=== PATIENT | male | born 1930 | race Caucasian/White ===

== ENCOUNTER 2016-09-05 16:09 | Outpatient (CLI) ==
[2016-01-20 16:13] VITALS: BMI 16.8
== END 2016-09-05 16:10 | disposition home or self-care (01) ==
LOC: LAB 16:09
PROVIDERS: ATTEND General Practice
DX: B35.1 Tinea unguium (principal)
CPT/HCPCS: 87070

== ENCOUNTER 2016-09-21 08:23 | Day surgery (SDC) ==
[2016-01-20 16:13] VITALS: BMI 16.8
[2016-09-21 09:05] VITALS: BP 134/78; TEMP 98.6
[2016-09-21] MEDS ORDERED: LIDOCAINE 1% 20 ML MDV ID ONE (10:18)
--- NOTE | 2016-10-06 10:11 | OP ---
DATE OF PROCEDURE: 09/21/16 SURGEON: NAVID SCHWARTZ M.D. 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 The patient is brought to surgeon because of the size again and the possibility of difficulty of approximation. The area was prepped and draped and anesthetized with 1% Xylocaine. The incision was made around the involved areas and carried into the subcutaneous tissue. This was then dissected sharply under low magnification. It was completely removed. Closure, however, was difficult and approximation and so the upper side of the incision was approximated to make the approximation with both edges possible and this was accomplished. 5-0 Vicryl was utilized and the skin was approximated with Steri- strips. Minimal blood loss. The patient tolerated the procedure well and will be seen at the office in one week and before if there is any problem. NINO
== END 2016-09-21 11:22 | disposition home or self-care (01) ==
LOC: SURG 08:23
PROVIDERS: ATTEND General Practice
DX: C44.319 Basal cell carcinoma of skin of other parts of face (principal)
CPT/HCPCS: 11644; 12052

== ENCOUNTER 2017-01-18 12:47 | Emergency (ER) ==
[2017-01-18 13:00] VITALS: BP 118/75; TEMP 96.9; BMI 18.0
--- NOTE | 2017-01-18 13:07 | ED.PDOC ---
General ED Provider: Dr. JOEY GOMEZ Chief Complaint: Fall Stated Complaint: Reportedly fell in workshop yesterday while going to use bathroom Time Seen by Physician: 13:05 Mode of Arrival: Walk-In Information Source: Patient Primary Care Provider: BOZENA AZEVEDO Nursing and Triage Documentation Reviewed and Agree: Yes Review of Systems - Review Of Systems Constitutional: Reports: No symptoms Respiratory: Reports: No symptoms Cardiac: Reports: No symptoms Musculoskeletal: Reports: Other (numerous skin tears) All Other Systems: Reviewed and Negative Past Medical History - Past Medical History Previously Healthy: Yes Endocrine: Reports: Dyslipidemia Cardiovascular: Reports: Hypertension, CHF, Other (tachycardia) Respiratory: Reports: COPD Hematological: Reports: None Gastrointestinal: Reports: Other (Esophageal stricture) Genitourinary: Reports: None Neuro/Psych: Reports: None Musculoskeletal: Reports: None Cancer: Reports: Skin - Surgical History General Surgical History: Reports: Pacemaker, Other (Esophageal stricture) - Family History Family History: Reports: Unknown - Social History Smoking Status: Current every day smoker, Heavy tobacco smoker Hx Substance Use: No Alcohol Screening: None - Immunizations Tetanus Shot up to Date: No (more than 10 years) Physical Exam - Physical Exam Appearance: Well-appearing Eyes: ODETTE, EOMI ENT: Nose normal, Oropharynx normal Respiratory: Airway patent, Breath sounds clear, Respirations nonlabored Cardiovascular: RRR, Pulses normal GI/: Soft, Nontender, Bowel sounds normal Musculoskeletal: Normal strength, ROM intact, Limited ROM Skin: Warm, Dry, Normal color (except for skin tears R and L upper extremities) Critical Care Note - Critical Care Note Total Time (mins): 10 Course - Course Orders, Labs, Meds: Orders Category Date Time Status Wound [ED WOUND CARE] .ONCE EMERGENCY 01/18/17 13:21 Active Bacitracin/Polymyxin B Sulfate [Polysporin 0.9 gm MEDS 01/18/17 13:22 Discontinued Packet] 1 each TP ONCE STA Medications Discontinued Medications Generic Name Dose Route Start Last Admin Trade Name Freq PRN Reason Stop Dose Admin Bacitracin/Polymyxin B Sulfate 1 each 01/18/17 13:22 01/18/17 13:55 Polysporin 0.9 Gm Packet TP 01/18/17 13:23 1 each ONCE STA Administration Vital Signs: Temp Pulse Resp BP Pulse Ox 01/18/17 12:47 96.9 F L 67 20 118/75 95 Departure - Departure Time of Disposition: 14:24 Disposition: HOME SELF-CARE Discharge Problem: Skin tear of right upper arm without complication Instructions: Abrasion (ED) Condition: Good Pt referred to PMD for follow-up: Yes (Call for followup appointment) Additional Instructions: Follow up with primary care; watch for signs of infection. Allergies/Adverse Reactions: Allergies No Known Allergies Allergy (Verified 01/18/17 13:01) Home Medications: Ambulatory Orders Digoxin [Lanoxin] 125 mcg PO DAILY 08/22/13 Hydrocodone/Acetaminophen [Hydrocodon-Acetaminoph 7.5-325] 1 tab PO BID Alprazolam [Xanax] 0.25 mg PO BID PRN 01/20/16 Ferrous Sulfate [Iron] 325 mg PO DAILY 01/20/16 Aspirin 325 mg PO DAILY 08/16/16 Donepezil HCl [Aricept] 5 mg PO DAILY 09/21/16 Meclizine HCl [Antivert] 25 mg PO QID PRN 09/21/16 Disposition Discussed With: Patient
[2017-01-18] MEDS ORDERED: POLYSPORIN 0.9 GM PACKET TP STA (13:22)
== END 2017-01-18 14:36 | disposition home or self-care (01) ==
LOC: ED 12:47
DX: S41.112A Laceration without foreign body of left upper arm, initial encounter (principal); S41.111A Laceration without foreign body of right upper arm, initial encounter; W19.XXXA Unspecified fall, initial encounter; F17.210 Nicotine dependence, cigarettes, uncomplicated
CPT/HCPCS: 99283

== ENCOUNTER 2017-07-20 13:16 | Inpatient (IN) | payer OTHER ==
--- NOTE | 2017-07-20 13:42 | ED.PDOC ---
General ED Provider: Dr. JOEY GOMEZ Chief Complaint: Cough Stated Complaint: Cough, weakness Time Seen by Physician: 13:40 Mode of Arrival: Walk-In Information Source: Patient Primary Care Provider: BOZENA AZEVEDO Nursing and Triage Documentation Reviewed and Agree: Yes Reviewed sepsis parameters & appropriate labs ordered?: Yes System Inflammatory Response Syndrome: Not Applicable Sepsis Protocol: For patient's 13 years and over: Temp is 96.8 and below OR 101 and greater Pulse >90 BPM Resp >20/minute Acutely Altered Mental Status Are patient's symptoms suggestive of a new infection, such as: -Pneumonia -Skin, Soft Tissue -Endocarditis -UTI -Bone, Joint Infection -Implantable Device -Acute Abdominal Infection -Wound Infection -Meningitis -Blood Stream Catheter Infection -Unknown Review of Systems - Review Of Systems Constitutional: Reports: Malaise, Weakness Respiratory: Reports: Cough Neurological: Reports: Headache, Weakness All Other Systems: Reviewed and Negative Past Medical History - Past Medical History Previously Healthy: Yes Endocrine: Reports: Dyslipidemia Cardiovascular: Reports: Hypertension, CHF, Other (tachycardia) Respiratory: Reports: COPD Hematological: Reports: None Gastrointestinal: Reports: Other (Esophageal stricture) Genitourinary: Reports: None Neuro/Psych: Reports: None Musculoskeletal: Reports: None Cancer: Reports: Skin - Surgical History General Surgical History: Reports: Pacemaker, Other (Esophageal stricture) - Family History Family History: Reports: Unknown - Social History Smoking Status: Current every day smoker, Heavy tobacco smoker Hx Substance Use: No Alcohol Screening: None Physical Exam - Physical Exam Appearance: Ill-appearing Ill-appearing: Mild Eyes: ODETTE, EOMI ENT: Oropharynx normal Neck: Supple Respiratory: Airway patent, Breath sounds clear, Breath sounds diminished Cardiovascular: RRR, Pulses normal GI/: Soft, Nontender Musculoskeletal: Normal strength, ROM intact Skin: Warm, Dry, Pale Neurological: Sensation intact, Motor intact, Alert, Oriented Psychiatric: Affect appropriate, Mood appropriate Interpretation - Radiology Interpretation Radiology Interpretation By: Radiologist Radiology Results: No acute changes Exam Interpreted: Portable CXR - EKG Interpretation Time of EKG #1: 14:42 Rate: Normal Rhythm: Sinus Ectopy: None ST Segment: Normal Interpretation: No acute changes Re-Evaluation - Re-Evaluation Time of Re-Evaluation: 15:35 Status: Unchanged Appearance: NAD Lungs: Clear Skin: Warm and Dry Neuro: Alert and Oriented X3 Physician Notification - Case Discussed Physician Notified: Dr. Azevedo Time of Notification: 16:25 (Discussion re admission) Critical Care Note - Critical Care Note Total Time (mins): 35 Course - Course Hematology/Chemistry: 07/20/17 14:25 07/20/17 14:25 Orders, Labs, Meds: Lab Review 07/20/17 07/20/17 07/20/17 14:14 14:25 14:25 WBC 8.22 RBC 3.89 L Hgb 13.2 L Hct 38.6 L MCV 99.2 H MCH 33.9 H MCHC 34.2 RDW Coeff of Lauri 12.7 Plt Count 201 Immature Gran % (Auto) 0.6 Neut % (Auto) 78.6 Lymph % (Auto) 8.3 L [place] % (Auto) 12.0 H Eos % (Auto) 0.1 Baso % (Auto) 0.4 Immature Gran # (Auto) 0.1 Neut # 6.5 Lymph # 0.7 [place] # 1.0 Eos # 0.0 Baso # 0.0 Puncture Site Rr O2 Saturation 93.0 L ABG pH 7.415 ABG pCO2 30.6 L ABG pO2 64.0 L ABG HCO3 19.6 L ABG Total CO2 21 L ABG Base Excess -5 L Esvin Test + Oxygen Liter Flow 21.00 Sodium 137 Potassium 5.0 Chloride 104 Carbon Dioxide 26 Anion Gap 12.0 BUN 21 H Creatinine 1.40 H Estimated GFR (MDRD) 48.00 BUN/Creatinine Ratio 15.00 Glucose 109 Calcium 8.8 Total Bilirubin 0.5 AST 26 ALT 16 Alkaline Phosphatase 81 Troponin I 0.0640 Total Protein 6.8 Albumin 2.9 L Globulin 3.9 Albumin/Globulin Ratio 0.74 Influenza A (Rapid) Influenza B (Rapid) 07/20/17 14:45 WBC RBC Hgb Hct MCV MCH MCHC RDW Coeff of Lauri Plt Count Immature Gran % (Auto) Neut % (Auto) Lymph % (Auto) [place] % (Auto) Eos % (Auto) Baso % (Auto) Immature Gran # (Auto) Neut # Lymph # [place] # Eos # Baso # Puncture Site O2 Saturation ABG pH ABG pCO2 ABG pO2 ABG HCO3 ABG Total CO2 ABG Base Excess Esvin Test Oxygen Liter Flow Sodium Potassium Chloride Carbon Dioxide Anion Gap BUN Creatinine Estimated GFR (MDRD) BUN/Creatinine Ratio Glucose Calcium Total Bilirubin AST ALT Alkaline Phosphatase Troponin I Total Protein Albumin Globulin Albumin/Globulin Ratio Influenza A (Rapid) Positive by naat H Influenza B (Rapid) Negative by naat Orders Category Date Time Status ADMIT PATIENT INPATIENT .TO [facility] (MONITORED BED) ADMISSION 07/20/17 16: 21 Active ABG DRAW REQUEST Stat CARDIO 07/20/17 14:17 Completed EKG-(ED ONLY) Stat CARDIO 07/20/17 14:15 Completed NEBULIZER TREATMENT Routine CARDIO 07/20/17 16:33 Ordered OXYGEN Routine CARDIO 07/20/17 16:26 Ordered ACTIVITY .Complete BR CARE 07/20/17 16:21 Active INTAKE & OUTPUT Q8HR CARE 07/20/17 16:21 Active TELEMETRY MONITORING TELE CARE 07/20/17 16:29 Active VITAL SIGNS Q8HR CARE 07/20/17 16:21 Active REGULAR DIET DIETARY 07/20/17 Breakfast Ordered ABG Stat LAB 07/20/17 14:14 Completed CBC W/ AUTO DIFF DAILY@0600 LAB 07/21/17 06:00 Ordered CBC W/ AUTO DIFF DAILY@0600 LAB 07/22/17 06:00 Ordered CBC W/ AUTO DIFF Stat LAB 07/20/17 14:25 Completed COMPREHENSIVE METABOLIC PANEL DAILY@0600 LAB 07/21/17 06:00 Ordered COMPREHENSIVE METABOLIC PANEL DAILY@0600 LAB 07/22/17 06:00 Ordered COMPREHENSIVE METABOLIC PANEL Stat LAB 07/20/17 14:25 Completed FLU A/B MOLECULAR Stat LAB 07/20/17 14:45 Completed MOLECULAR GROUP A STREP Stat LAB 07/20/17 14:45 Completed TROPONIN I Stat LAB 07/20/17 14:25 Completed URINALYSIS C & S IF INDICATED Stat LAB 07/20/17 14:14 Uncollected Acetaminophen [Tylenol] MEDS 07/20/17 15:36 Discontinued 500 mg PO ONCE STA Albuterol Sulfate 0.083% Neb [Albuterol 0.083% Neb] MEDS 07/20/17 20:00 Ordered 1 vial NEB RTQID Alprazolam [Xanax] MEDS 07/20/17 16:33 Ordered 0.25 mg PO BID PRN Aspirin [Aspirin EC] MEDS 07/20/17 17:00 Ordered 81 mg PO DAILY Azithromycin [Zithromax] MEDS 07/20/17 17:00 Active 500 mg PO DAILY Ceftriaxone Sodium [Rocephin] 1 gm MEDS 07/20/17 16:30 Ordered 0.9 % Sodium Chloride [Sodium Chloride] 50 ml IV DAILY Digoxin [Lanoxin] MEDS 07/21/17 09:00 Ordered 125 mcg PO DAILY Donepezil HCl [Aricept] MEDS 07/21/17 09:00 Ordered 5 mg PO DAILY Enoxaparin Sodium [Lovenox] MEDS 07/21/17 09:00 Ordered 30 mg SUBCUT DAILY Ferrous Sulfate [Iron] MEDS 07/21/17 09:00 Ordered 325 mg PO DAILY Hydrocodone Bit/Acetaminophen [Arthur 7.5-325] MEDS 07/20/17 21:00 Ordered 1 tab PO BID Methylprednisolone Sod Succ/Pf [Solu-Medrol 40 mg] MEDS 07/20/17 16:31 Discontinued 40 mg IVP ONCE STA [place]-3S/Dha/Epa/Fish Oil/D3 [Fish Oil-Vit D3 Softgel] MEDS 07/20/17 16:45 Ordered 1 each PO bid Triamcinolone Acetonide [Nasacort] MEDS 07/20/17 16:45 Ordered 16.9 ml NS 1-2XD RESUSCITATION STATUS Routine OTHERS 07/20/17 16:21 Ordered CHEST, 1V AP ONLY Stat RADS 07/20/17 13:41 Completed Medications Generic Name Dose Route Start Last Admin Trade Name Freq PRN Reason Stop Dose Admin Acetaminophen/Hydrocodone Bitart 1 tab 07/20/17 21:00 [place] 7.5-325 PO BID VERONICA Albuterol Sulfate 1 vial 07/20/17 20:00 Albuterol 0.083% Neb NEB RTQID VERONICA Alprazolam 0.25 mg 07/20/17 16:33 Xanax PO BID PRN Anxiety Aspirin 81 mg 07/20/17 17:00 Aspirin Ec PO DAILY [facility] Azithromycin 500 mg 07/20/17 17:00 Zithromax PO 07/22/17 23:59 DAILY [facility] Digoxin 125 mcg 07/21/17 09:00 Lanoxin PO DAILY [facility] Enoxaparin Sodium 30 mg 07/21/17 09:00 Lovenox SUBCUT DAILY [facility] Ceftriaxone Sodium 1 gm/ 50 mls @ 75 mls/hr 07/20/17 16:30 Sodium Chloride IV DAILY [facility] Non-Formulary Medication 5 mg 07/21/17 09:00 Donepezil Hcl [Aricept] PO DAILY VERONICA Non-Formulary Medication 325 mg 07/21/17 09:00 Ferrous Sulfate [Iron] PO DAILY VERONICA Non-Formulary Medication 1 each 07/20/17 16:45 [place]-3s/Dha/Epa/Fish Oil/D3 [Fish Oil-Vit D3 Softgel] PO bid VERONICA Non-Formulary Medication 16.9 ml 07/20/17 16:45 Triamcinolone Acetonide [Nasacort] NS 1-2XD VERONICA Discontinued Medications Generic Name Dose Route Start Last Admin Trade Name Freq PRN Reason Stop Dose Admin Acetaminophen 500 mg 07/20/17 15:36 07/20/17 15:42 Tylenol PO 07/20/17 15:37 500 mg ONCE STA Administration Methylprednisolone Sodium Succinate 40 mg 07/20/17 16:31 Solu-Medrol 40 Mg IVP 07/20/17 16:32 ONCE STA Vital Signs: Temp Pulse Resp BP Pulse Ox 07/20/17 13:23 98.7 F 102 H 20 146/89 H 90 L Departure - Departure Time of Disposition: 16:40 Disposition: ADMITTED INPATIENT Discharge Problem: Influenza A Instructions: Influenza (ED) Condition: Stable Pt referred to PMD for follow-up: Yes (Follow up with primary care on discharge) IPMP verified?: No Allergies/Adverse Reactions: Allergies No Known Allergies Allergy (Verified 07/20/17 13:30) Home Medications: Ambulatory Orders Digoxin [Lanoxin] 125 mcg PO DAILY 08/22/13 Hydrocodone/Acetaminophen [Hydrocodon-Acetaminoph 7.5-325] 1 tab PO BID Alprazolam [Xanax] 0.25 mg PO BID PRN 01/20/16 Ferrous Sulfate [Iron] 325 mg PO DAILY 01/20/16 Donepezil HCl [Aricept] 5 mg PO DAILY 09/21/16 Meclizine HCl [Antivert] 25 mg PO QID PRN 09/21/16 Aspirin [Aspirin Ec] 81 mg PO DAILY #30 tab-cap 02/14/17 [place]-3S/Dha/Epa/Fish Oil/D3 [Fish Oil-Vit D3 Softgel] 1 each PO bid #90 tab- cap 02/14/17
--- NOTE | 2017-07-20 14:00 | DI ---
EXAM: CHEST FRONTAL VIEW HISTORY: Cough. COMPARISON: 01/20/2016 FINDINGS: A heart size is within normal limits and stable. Left-sided pacemaker unit is stable. St ernotomy wires are noted. Moderate atherosclerotic disease. There is diffuse, chronic appearing inte rstitial accentuation. Lungs are hyperinflated and there is relative lucency of the lung zones which can be consistent with pulmonary emphysema. No acute infiltrates are seen. No vascular congestion. There is no consolidation, visible pleural fluid or pneumothorax. Bones reveal no acute fracture. IMPRESSION: No acute cardiopulmonary process.
[2017-07-20] MEDS ORDERED: TYLENOL PO STA (15:36)
[2017-07-20] MEDS ORDERED: SOLU-MEDROL 40 MG IVP STA (16:31)
[2017-07-20] MEDS ORDERED: FISH OIL PO SCH (16:45)
[2017-07-20] MEDS ORDERED: TRIAMCINOLONE ACETONIDE NS SCH (16:45)
[2017-07-20] MEDS ORDERED: [UNRECOGNIZED DRUG - OTHER] PO SCH (16:45)
[2017-07-20] MEDS ORDERED: D3 PO SCH (16:45)
[2017-07-20] MEDS ORDERED: OMEGA PO SCH (16:45)
[2017-07-20] MEDS ORDERED: DHA PO SCH (16:45)
[2017-07-20] MEDS ORDERED: EPA PO SCH (16:45)
[2017-07-20] MEDS ORDERED: ZITHROMAX 500 MG in SODIUM CHLORIDE 250 ML IV SCH (17:00)
[2017-07-20] MEDS: ROCEPHIN 1 GM in SODIUM CHLORIDE 50 ML IV SCH (17:33)
[2017-07-20] MEDS: ZITHROMAX PO SCH (17:33)
[2017-07-20] MEDS: ASPIRIN EC PO SCH (17:33)
[2017-07-20 17:53] VITALS: BMI 18.5
[2017-07-20] MEDS: XOPENEX 1.25 MG NEB SCH ×2 (18:11→22:50)
[2017-07-20] MEDS ORDERED: SODIUM CHLORIDE 1,000 ML IV SCH (18:30)
[2017-07-20] MEDS ORDERED: ALBUTEROL 0.083% NEB NEB SCH (20:00)
[2017-07-20] MEDS ORDERED: TAMIFLU ONE (20:26)
[2017-07-20] MEDS: FLONASE NAS SCH (20:34)
[2017-07-20] MEDS: NORCO 7.5-325 PO SCH (20:34)
[2017-07-20] MEDS: SOLU-MEDROL 40 MG IVP SCH (20:34)
[2017-07-20] MEDS: OMEGA-3 FISH OIL PO SCH (20:34)
[2017-07-20] MEDS: XANAX PO PRN (20:34)
[2017-07-20] MEDS ORDERED: TAMIFLU PO SCH (21:00)
[2017-07-21] MEDS: SOLU-MEDROL 40 MG IVP SCH ×3 (04:03→21:12)
[2017-07-21] MEDS: XOPENEX 1.25 MG NEB SCH ×4 (05:22→23:00)
[2017-07-21] MEDS ORDERED: NON-FORMULARY MEDICATION (Ferrous Sulfate [Iron] 325 MG) PO SCH (09:00)
[2017-07-21] MEDS ORDERED: NON-FORMULARY MEDICATION (Donepezil Hcl [Aricept] 5 MG) PO SCH (09:00)
[2017-07-21] MEDS: LOVENOX SUBCUT SCH (09:30)
[2017-07-21] MEDS: LANOXIN PO SCH (09:31)
[2017-07-21] MEDS: OMEGA-3 FISH OIL PO SCH ×2 (09:31→21:12)
[2017-07-21] MEDS: ARICEPT PO SCH (09:32)
[2017-07-21] MEDS: TAMIFLU PO SCH ×2 (09:33→21:12)
[2017-07-21] MEDS: ASPIRIN EC PO SCH (09:33)
[2017-07-21] MEDS: FERROUS SULFATE PO SCH (09:33)
[2017-07-21] MEDS: FLONASE NAS SCH ×2 (09:34→21:13)
[2017-07-21] MEDS: NORCO 7.5-325 PO SCH ×2 (09:34→21:12)
[2017-07-21] MEDS: ROCEPHIN 1 GM in SODIUM CHLORIDE 50 ML IV SCH (09:49)
[2017-07-21] MEDS: ZITHROMAX PO SCH (09:49)
[2017-07-22] MEDS: SOLU-MEDROL 40 MG IVP SCH ×3 (05:01→20:16)
[2017-07-22] MEDS: XOPENEX 1.25 MG NEB SCH ×4 (05:55→23:40)
[2017-07-22] MEDS: ASPIRIN EC PO SCH (08:44)
[2017-07-22] MEDS: ZITHROMAX PO SCH (08:44)
[2017-07-22] MEDS: OMEGA-3 FISH OIL PO SCH ×2 (08:44→20:16)
[2017-07-22] MEDS: TAMIFLU PO SCH ×2 (08:44→20:16)
[2017-07-22] MEDS: ARICEPT PO SCH (08:45)
[2017-07-22] MEDS: FERROUS SULFATE PO SCH (08:45)
[2017-07-22] MEDS: LOVENOX SUBCUT SCH (08:46)
[2017-07-22] MEDS: LANOXIN PO SCH (08:46)
[2017-07-22] MEDS: FLONASE NAS SCH ×2 (08:47→20:16)
[2017-07-22] MEDS: ROCEPHIN 1 GM in SODIUM CHLORIDE 50 ML IV SCH (08:47)
[2017-07-22] MEDS: NORCO 7.5-325 PO SCH ×2 (13:48→20:16)
[2017-07-22] MEDS ORDERED: ZOFRAN 4 MG/2 ML IVP PRN (17:52)
[2017-07-22] MEDS ORDERED: NUBAIN IVP PRN (17:54)
[2017-07-22] MEDS ORDERED: DULCOLAX RC PRN (17:55)
[2017-07-22] MEDS: XANAX PO PRN (18:03)
[2017-07-23] MEDS: SOLU-MEDROL 40 MG IVP SCH ×3 (04:39→21:27)
[2017-07-23] MEDS: XOPENEX 1.25 MG NEB SCH ×3 (04:55→17:15)
[2017-07-23] MEDS ORDERED: DEXTROSE 5%-1/2NS IV SOLUTION 1,000 ML IV SCH (09:00)
[2017-07-23] MEDS: FLONASE NAS SCH ×2 (09:08→21:27)
[2017-07-23] MEDS: FERROUS SULFATE PO SCH (09:09)
[2017-07-23] MEDS: ASPIRIN EC PO SCH (09:09)
[2017-07-23] MEDS: NORCO 7.5-325 PO SCH ×2 (09:09→21:27)
[2017-07-23] MEDS: OMEGA-3 FISH OIL PO SCH ×2 (09:09→21:27)
[2017-07-23] MEDS: ARICEPT PO SCH (09:09)
[2017-07-23] MEDS: TAMIFLU PO SCH ×2 (09:10→21:27)
[2017-07-23] MEDS: LOVENOX SUBCUT SCH (09:10)
[2017-07-23] MEDS: LANOXIN PO SCH (09:11)
[2017-07-23] MEDS: ROCEPHIN 1 GM in SODIUM CHLORIDE 50 ML IV SCH (09:14)
[2017-07-23] MEDS: DEXTROSE 5%-1/2NS IV SOLUTION 1,000 ML IV SCH (09:14)
[2017-07-23] MEDS: XANAX PO PRN (10:00)
--- NOTE | 2017-07-23 11:05 | HP ---
DATE OF SERVICE: 07/20/17 REASON FOR HOSPITALIZATION: Shortness of breath, cough, congestion, weakness and confusion. HISTORY OF PRESENT ILLNESS: 87 year old white male was brought to the emergency room by his because of altered mental status with fever and chills at home for past 2-3 days duration. The patient otherwise has been up and about. On further examination the patient had influenza A positive with bronchitis and evidence of dehydration. 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 Weakness and fatigue. No fever or chills. HEENT: Eyes: No visual changes. No eye pain. No eye discharge. ENT: No runny nose. No epistaxis. No sinus pain. No sore throat. No odynophagia. No ear pain. No congestion. RESPIRATORY: Cough, Congestion. No hemoptysis. No shortness of breath. CARDIOVASCULAR: No angina symptoms. No CHF symptoms. No atypical chest pain for CAD. No palpitations. No orthopnea. No PND. GASTROINTESTINAL: No abdominal pain. No nausea or vomiting. No diarrhea or constipation. No hematemesis. No hematochezia. Poor appetite. GENITOURINARY: No urgency. No frequency. No dysuria. No hematuria. No obstructive symptoms. No discharge. No pain. No significant abnormal bleeding. MUSCULOSKELETAL: No musculoskeletal pain. No joint swelling. No arthritis. Weakness and achy feeling. Moving all extremities. NEUROLOGICAL: No headache. No neck pain. No syncope. No seizures. No dizziness. Confusion. PSYCHIATRIC: Not anxious. No depression. No suicidal thoughts. No homicidal thoughts. SKIN: No rash. No lesions. No wounds. ENDOCRINE: No unexplained weight loss. No weight gain. HEMATOLOGIC/LYMPHATIC: No anemia. No purpura. No petechiae. No prolonged or excessive bleeding. No palpable lymph nodes. PERSONAL/FAMILY/SOCIAL HISTORY: The patient and lives with the . The patient does all activity of daily living. Non-smoker and no alcohol abuse. MEDICATIONS: Lanoxin 125mcg Po daily [place] one tablet PO twice a day Xanax 0.25mg twice a day Iron 325mg Po daily Aricept 5mg Po daily Aspirin 81mg Po daily Nasacort PRN ALLERGIES: None PHYSICAL EXAMINATION: GENERAL: The patient is oriented to person. VITAL SIGNS: Temperature 98.7, pulse 100, respiratory rate 20, blood pressure 146/89 and pulse ox 90% on room air. HEENT: Head normocephalic, atraumatic. Eyes: Extraocular muscles are intact. Pupils are equal, round and reactive to light and accommodation. Ears: No lesions. Nose appeared normal. Throat: No exudate or erythema. NECK: Supple. No JVD, no carotid bruit. No lymphadenopathy or thyromegaly. LUNGS: Clear to auscultation. Percussion note normal. Chest symmetrical. HEART: S1, S2, no S3. No murmurs. No cyanosis or clubbing. No ascites. Pulses: Dorsalis pedis and posterior tibial pulses +1 to +2 both sides. ABDOMEN: Soft. Nontender. Bowel sounds active. No CVA tenderness. No mass felt. EXTREMITIES: No edema. Full range of motion of all extremities, equal. NEUROLOGIC: No focal deficit. Cranial nerves II through XII are grossly intact. No headache, no double vision or headache. SKIN: Not dry. Intact. Turgor - normal. LYMPHATIC: No palpable lymph nodes/no lymphedema. MUSCULOSKELETAL: Normal joints with no swelling. Muscle tone is normal. LABS: Influenza A rapid positive. ABG pO2 64, pCO2 30, pH 7.41 with 93% saturation, creatinine 1.4, BUN 21, hgb 13, hct 38, WBC 8,000 normal differential and [place] is 12%. ASSESSMENT: 1. Acute bronchitis/pneumonitis with Influenza A positive 2. Dehydration 3. Pacemaker placement 4. Dementia PLAN: 1. Give IV fluids 2. IV steroids 3. IV antibiotics 4. NEBS treatment 5. Telemetry 6. Continue all the rest of the medications as before. The patient is getting Azithromycin also Lovenox 30mg with Rocephin TIME SPENT: More than 70 minutes. MTDD
--- NOTE | 2017-07-23 11:09 | PN ---
DATE OF SERVICE: 07/21/17 SUBJECTIVE: 87 year old white male hospitalized with influenza A positive. The patient has been weak and dehydrated. Coughing mildly with poor appetite. His is also confused. REVIEW OF SYSTEMS: CONSTITUTIONAL: No night sweats. No fatigue, malaise, lethargy. No fever or chills. HEENT: Eyes: No visual changes. No eye pain. No eye discharge. ENT: No runny nose. No epistaxis. No sinus pain. No sore throat. No odynophagia. No congestion. RESPIRATORY: Mild cough, Congestion. No hemoptysis. No shortness of breath. CARDIOVASCULAR: No angina symptoms. No CHF symptoms. No atypical chest pain for CAD. No palpitations. No orthopnea. GASTROINTESTINAL: No abdominal pain. No nausea or vomiting. No diarrhea or constipation. No hematemesis. No hematochezia. Appetite has improved some but sleepy. GENITOURINARY: No urgency. No frequency. No dysuria. No hematuria. No obstructive symptoms. No discharge. No pain. No significant abnormal bleeding. MUSCULOSKELETAL: No musculoskeletal pain; no joint swelling. NEUROLOGICAL: No headache. No neck pain. No syncope. No seizures. No dizziness. PSYCHIATRIC: Not anxious. No depression. No suicidal thoughts. No homicidal thoughts. SKIN: No rash. No lesions. No wounds. ENDOCRINE: No unexplained weight loss. No weight gain. HEMATOLOGIC/LYMPHATIC: No anemia. No purpura. No petechiae. No prolonged or excessive bleeding. No palpable lymph nodes. PHYSICAL EXAMINATION: GENERAL: The patient is oriented to person. VITAL SIGNS: Temperature 97.6, pulse 80, respiratory rate 16, blood pressure 105/50 and pulse ox 98%. HEENT: Head normocephalic, atraumatic. Eyes: Extraocular muscles are intact. Pupils are equal, round and reactive to light and accommodation. Ears: No lesions. Nose appeared normal. Throat: No exudate or erythema. NECK: Supple. No JVD, no carotid bruit. No lymphadenopathy or thyromegaly. LUNGS:Decreased breath sounds. Clear to auscultation. Percussion note normal. Chest symmetrical. HEART: S1, S2, no S3. No murmurs. No cyanosis or clubbing. No ascites. Pulses: Dorsalis pedis and posterior tibial pulses +1 to +2 both sides. ABDOMEN: Soft. Nontender. Bowel sounds active. No CVA tenderness. No mass felt. EXTREMITIES: No edema. Full range of motion of all extremities, equal. NEUROLOGIC: No focal deficit. Cranial nerves II through XII are grossly intact. No headache, no double vision or headache. SKIN: Dry. Intact. Turgor - normal. Mucosa Membrane dry. LYMPHATIC: No palpable lymph nodes/no lymphedema. MUSCULOSKELETAL: Normal joints with no swelling. Muscle tone is normal. LABS: hgb 12.9, hct 38, WBC 5,800 normal differential, creatinine 1.4, BUN 24, potassium 4.2. ASSESSMENT: 1. Influenza A 2. Acute bronchitis 3. Dehydration 4. Dementia from influenza and existing medical conditions. 5. Pacemaker 6. Chronic kidney disease PLAN: 1. Continue IV fluids 2. Continue antibiotics, NEBS treatment and Steroids. TIME SPENT: More than 30 minutes. Plan and coordination of the patient's care discussed in the presence of nurse. NINO
--- NOTE | 2017-07-23 11:38 | PCM.PROG ---
Attending Provider: ATTENDING PROVIDER: Dr. BOZENA AZEVEDO This patient is seen with Tatiana Bowman, Nurse Practitioner. DATE OF SERVICE: 07/23/17 SUBJECTIVE: This 87 year old WHITE/ M was hospitalized 07/20/17. The patient is lying in bed, alert but confused due to dementia. REVIEW OF SYSTEMS: CONSTITUTIONAL: Weakness. No night sweats. No fever or chills. HEENT: Eyes: No visual changes. No eye pain. No eye discharge. ENT: No runny nose. No epistaxis. No sinus pain. No odynophagia. No congestion. RESPIRATORY: Cough. No congestion. No hemoptysis. No shortness of breath. CARDIOVASCULAR: No angina symptoms. No CHF symptoms. No atypical chest pain for CAD. No palpitations. No orthopnea.. GASTROINTESTINAL: No abdominal pain. No nausea or vomiting. No diarrhea or constipation. No hematemesis. No hematochezia. GENITOURINARY: No urgency. No frequency. No dysuria. No hematuria. No obstructive symptoms. No discharge. No pain. No significant abnormal bleeding. MUSCULOSKELETAL: No musculoskeletal pain; no joint swelling. NEUROLOGICAL: Alert, confused. No headache. No neck pain. No syncope. No seizures. No dizziness. PSYCHIATRIC: Not anxious. No depression. No suicidal thoughts. No homicidal thoughts. SKIN: No rash. No lesions. No wounds. ENDOCRINE: No unexplained weight loss. No weight gain. HEMATOLOGIC/LYMPHATIC: No anemia. No purpura. No petechiae. No prolonged or excessive bleeding. No palpable lymph nodes. PHYSICAL EXAMINATION: GENERAL: The patient is awake, alert with confusion, lying/sitting in bed in no distress. VITAL SIGNS: Temperature 98.2 F, Pulse 97, Respiratory Rate 20, BP 107/64, Pulse Ox 91% HEENT: Head normocephalic, atraumatic. Eyes: Extraocular muscles are intact. Pupils are equal, round and reactive to light and accommodation. Ears: No lesions. Nose appeared normal. Throat: No exudate or erythema. NECK: Supple. No JVD, no carotid bruit. No lymphadenopathy or thyromegaly. LUNGS: Diminished breath sounds bilaterally. Clear to auscultation. Percussion note normal. Chest symmetrical. HEART: S1, S2, no S3. No murmurs. No cyanosis or clubbing. No ascites. Pulses: Dorsalis pedis and posterior tibial pulses +1 to +2 both sides. ABDOMEN: Soft. Non-tender. Bowel sounds active. No CVA tenderness. No mass felt. EXTREMITIES: No edema. Full range of motion of all extremities, equal. NEUROLOGIC: No focal deficit. Cranial nerves II through XII are grossly intact. No headache, no double vision or headache. SKIN: Not dry. Intact. Turgor-normal. LYMPHATIC: No palpable lymph nodes/no lymphedema. MUSCULOSKELETAL: Normal joints with no swelling. Muscle tone is normal. LAB REVIEW: 07/23/17 04:30 07/23/17 04:30 07/23/17 04:30: Sodium 137, Potassium 4.7, Chloride 106, Carbon Dioxide 22 L, Anion Gap 13.7, BUN 31 H, Creatinine 1.35 H, Estimated GFR (MDRD) 50.00, BUN/ Creatinine Ratio 22.96, Glucose 151 H, Calcium 8.6, Total Bilirubin 0.5, AST 32 , ALT 23, Alkaline Phosphatase 58, Total Protein 5.8, Albumin 2.5 L, Globulin 3.3, Albumin/Globulin Ratio 0.76 07/23/17 04:30: WBC 16.06 H, RBC 3.96 L, Hgb 13.1 L, Hct 39.1 L, MCV 98.7 H, MCH 33.1 H, MCHC 33.5, RDW Coeff of Lauri 12.9, Plt Count 253 D, Immature Gran % (Auto) 0.9, Neut % (Auto) 87.5, Lymph % (Auto) 4.5 L, [place] % (Auto) 6.9, Eos % ( Auto) 0.0, Baso % (Auto) 0.2, Immature Gran # (Auto) 0.2, Neut # 14.0 H, Lymph # 0.7, [place] # 1.1, Eos # 0.0, Baso # 0.0 ASSESSMENT: 1. Influenza A 2. Dehydration 3. Weakness 4. Dementia PLAN: 1. Restart IV fluids, D5 1/2 at 50 mL/hr 2. Rocephin 1 gm daily IV 3. Digoxin level 4. Abdominal series 5. Regular diet Plan and coordination of the patient's care discussed in the presence of Silverware Buffer and nurse. CONDITION: Stable SCRIBED BY: MARY ANNE LUCERO Supply Specialist scribed while in presence of service performed by Dr. Azevedo/Tatiana Bowman APRN on 07/23/17 ([id number])
--- NOTE | 2017-07-23 13:43 | PN ---
DATE OF SERVICE: 07/22/17 SUBJECTIVE: 87 year old white male hospitalized with cough and congestion and dehydration. The patient has influenza A. The patient today looks a lot better and he is sitting up and talking to me now. He recognized me. He is awake and the patient' s is in the room and she agreed that he has improved a lot. The patient's appetite has improved. This morning he had a good breakfast. REVIEW OF SYSTEMS: CONSTITUTIONAL: No night sweats. No fatigue, malaise, lethargy. No fever or chills. Still weakness inability to walk without support. HEENT: Eyes: No visual changes. No eye pain. No eye discharge. ENT: No runny nose. No epistaxis. No sinus pain. No sore throat. No odynophagia. No congestion. RESPIRATORY: Mild cough, no congestion. No hemoptysis. No shortness of breath. CARDIOVASCULAR: No angina symptoms. No CHF symptoms. No atypical chest pain for CAD. No palpitations. No orthopnea. No PND. GASTROINTESTINAL: No abdominal pain. No nausea or vomiting. No diarrhea or constipation. No hematemesis. No hematochezia. GENITOURINARY: No urgency. No frequency. No dysuria. No hematuria. No obstructive symptoms. No discharge. No pain. No significant abnormal bleeding. MUSCULOSKELETAL: No musculoskeletal pain; no joint swelling. NEUROLOGICAL: No headache. No neck pain. No syncope. No seizures. No dizziness. PSYCHIATRIC: Not anxious. No depression. No suicidal thoughts. No homicidal thoughts. SKIN: No rash. No lesions. No wounds. ENDOCRINE: No unexplained weight loss. No weight gain. HEMATOLOGIC/LYMPHATIC: No anemia. No purpura. No petechiae. No prolonged or excessive bleeding. No palpable lymph nodes. PHYSICAL EXAMINATION: GENERAL: The patient is oriented to place and person. VITAL SIGNS: Temperature 98.5, pulse 70, respiratory rate 15, blood pressure 110/60 and pulse ox 90% with 2 liters. HEENT: Head normocephalic, atraumatic. Eyes: Extraocular muscles are intact. Pupils are equal, round and reactive to light and accommodation. Ears: No lesions. Nose appeared normal. Throat: No exudate or erythema. NECK: Supple. No JVD, no carotid bruit. No lymphadenopathy or thyromegaly. LUNGS: Mild wheeze but better air entry than yesterday. Percussion note normal. Chest symmetrical. HEART: S1, S2, no S3. No murmurs. No cyanosis or clubbing. No ascites. Pulses: Dorsalis pedis and posterior tibial pulses +1 to +2 both sides. ABDOMEN: Soft. Nontender. Bowel sounds active. No CVA tenderness. No mass felt. EXTREMITIES: No edema. Full range of motion of all extremities, equal. NEUROLOGIC: No focal deficit. Cranial nerves II through XII are grossly intact. No headache, no double vision or headache. SKIN: Not dry. Intact. Turgor - better. LYMPHATIC: No palpable lymph nodes/no lymphedema. MUSCULOSKELETAL: Normal joints with no swelling. Muscle tone is normal. LABS: hgb 11.4, hct 33, WBC 11,000 normal differential, creatinine 1.2, BUN 32, potassium 4.1. ASSESSMENT: 1. Influenza A with bronchitis 2. Dehydration seems to be improving clinically. The patient is acting better PLAN: 1. Continue NEBS, steroids and antibiotics. 2. The patient is going to be put on regular diet CONDITION: Stable and improving. TIME SPENT: More than 30 minutes. Plan and coordination of the patient's care discussed in the presence of nurse. NINO
--- NOTE | 2017-07-23 16:33 | DI ---
EXAM: KUB HISTORY: Abdominal pain. FINDINGS: Limited image quality. Bowel gas pattern appears grossly unremarkable. Calcifications ma y be superimposed over the left renal silhouette. Organ shadows are grossly within normal limits. C hronic bony finding. IMPRESSION: Limited exam reveals grossly unremarkable bowel gas pattern. Possible left nephrolithiasis.
[2017-07-24] MEDS: XOPENEX 1.25 MG NEB SCH ×5 (00:47→23:15)
[2017-07-24] MEDS: SOLU-MEDROL 40 MG IVP SCH ×3 (05:54→20:39)
[2017-07-24] MEDS: DEXTROSE 5%-1/2NS IV SOLUTION 1,000 ML IV SCH (05:54)
[2017-07-24] MEDS: TAMIFLU PO SCH ×2 (09:38→20:37)
[2017-07-24] MEDS: ROCEPHIN 1 GM in SODIUM CHLORIDE 50 ML IV SCH (09:38)
[2017-07-24] MEDS: FLONASE NAS SCH ×2 (09:38→20:36)
[2017-07-24] MEDS: OMEGA-3 FISH OIL PO SCH ×2 (09:38→20:36)
[2017-07-24] MEDS: PROTONIX PO SCH (09:39)
[2017-07-24] MEDS: FERROUS SULFATE PO SCH (09:39)
[2017-07-24] MEDS: NORCO 7.5-325 PO SCH ×2 (09:39→20:37)
[2017-07-24] MEDS: LOVENOX SUBCUT SCH (09:39)
[2017-07-24] MEDS: ASPIRIN EC PO SCH (09:39)
[2017-07-24] MEDS: ARICEPT PO SCH (09:39)
[2017-07-24] MEDS: LANOXIN PO SCH (09:40)
--- NOTE | 2017-07-24 10:06 | PCM.PROG ---
Attending Provider: ATTENDING PROVIDER: Dr. BOZENA AZEVEDO This patient is seen with Tatiana Bowman, Nurse Practitioner. DATE OF SERVICE: 07/24/17 SUBJECTIVE: This 87 year old WHITE/ M was hospitalized 07/20/17. The patient is lying in bed, resting comfortably. He has not been very alert. He has been sleeping mostly, not wanting to eat. REVIEW OF SYSTEMS: CONSTITUTIONAL: Fatigue. No night sweats. No fever or chills. HEENT: Eyes: No visual changes. No eye pain. No eye discharge. ENT: No runny nose. No epistaxis. No sinus pain. No odynophagia. No congestion. RESPIRATORY: No cough, no congestion. No hemoptysis. No shortness of breath. CARDIOVASCULAR: No angina symptoms. No CHF symptoms. No atypical chest pain for CAD. No palpitations. No orthopnea.. GASTROINTESTINAL: No appetite. No abdominal pain. No nausea or vomiting. No diarrhea or constipation. No hematemesis. No hematochezia. GENITOURINARY: No urgency. No frequency. No dysuria. No hematuria. No obstructive symptoms. No discharge. No pain. No significant abnormal bleeding. MUSCULOSKELETAL: No musculoskeletal pain; no joint swelling. NEUROLOGICAL: Sleeping. No headache. No neck pain. No syncope. No seizures. No dizziness. PSYCHIATRIC: Not anxious. No depression. No suicidal thoughts. No homicidal thoughts. SKIN: No rash. No lesions. No wounds. ENDOCRINE: No unexplained weight loss. No weight gain. HEMATOLOGIC/LYMPHATIC: No anemia. No purpura. No petechiae. No prolonged or excessive bleeding. No palpable lymph nodes. PHYSICAL EXAMINATION: GENERAL: The patient is resting comfortably, lying in bed in no distress. VITAL SIGNS: Temperature 98.9 F, Pulse 77, Respiratory Rate 16, BP 101/59, Pulse Ox 90% HEENT: Head normocephalic, atraumatic. Eyes: Extraocular muscles are intact. Pupils are equal, round and reactive to light and accommodation. Ears: No lesions. Nose appeared normal. Throat: No exudate or erythema. NECK: Supple. No JVD, no carotid bruit. No lymphadenopathy or thyromegaly. LUNGS: Diminished breath sounds. Clear to auscultation. Percussion note normal. Chest symmetrical. HEART: S1, S2, no S3. No murmurs. No cyanosis or clubbing. No ascites. Pulses: Dorsalis pedis and posterior tibial pulses +1 to +2 both sides. ABDOMEN: Soft. Non-tender. Bowel sounds active. No CVA tenderness. No mass felt. EXTREMITIES: No edema. Full range of motion of all extremities, equal. NEUROLOGIC: No focal deficit. Cranial nerves II through XII are grossly intact. No headache, no double vision or headache. SKIN: Not dry. Intact. Turgor-normal. LYMPHATIC: No palpable lymph nodes/no lymphedema. MUSCULOSKELETAL: Normal joints with no swelling. Muscle tone is normal. LAB REVIEW: 07/24/17 05:00 07/24/17 05:00 07/24/17 05:00: Sodium 136, Potassium 4.3, Chloride 106, Carbon Dioxide 22 L, Anion Gap 12.3, BUN 29 H, Creatinine 1.20 H, Estimated GFR (MDRD) 57.00, BUN/ Creatinine Ratio 24.16, Glucose 138 H, Calcium 8.3, Total Bilirubin 0.3, AST 19 , ALT 17, Alkaline Phosphatase 49 L, Total Protein 5.3 L, Albumin 2.1 L, Globulin 3.2, Albumin/Globulin Ratio 0.66 07/24/17 05:00: WBC 12.29 H, RBC 3.33 L, Hgb 11.4 L, Hct 32.9 L D, MCV 98.8 H, MCH 34.2 H, MCHC 34.7, RDW Coeff of Lauri 12.9, Plt Count 174 D, Immature Gran % (Auto) 1.4, Neut % (Auto) 88.4, Lymph % (Auto) 4.5 L, [place] % (Auto) 5.5, Eos % ( Auto) 0.0, Baso % (Auto) 0.2, Immature Gran # (Auto) 0.2, Neut # 10.9 H, Lymph # 0.6, [place] # 0.7, Eos # 0.0, Baso # 0.0 ASSESSMENT: 1. Influenza A 2. Dehydration 3. Weakness 4. Dementia 5. Chronic kidney disease PLAN: 1. Protonix 40 mg daily p.o. 2. Continue IV fluids Plan and coordination of the patient's care discussed in the presence of Research Development Director and nurse. CONDITION: Stable SCRIBED BY: MARY ANNE LUCERO Manager Chinese scribed while in presence of service performed by Dr. Azevedo/Tatiana Bowman APRN on 07/24/17 ([id number])
[2017-07-24] MEDS: XANAX PO PRN (20:37)
[2017-07-24] MEDS: TORADOL IVP PRN (20:39)
[2017-07-25] MEDS: XOPENEX 1.25 MG NEB SCH ×3 (04:45→17:36)
[2017-07-25] MEDS: SOLU-MEDROL 40 MG IVP SCH ×3 (04:57→22:35)
[2017-07-25] MEDS: DEXTROSE 5%-1/2NS IV SOLUTION 1,000 ML IV SCH (04:57)
[2017-07-25] MEDS: PROTONIX PO SCH (05:38)
--- NOTE | 2017-07-25 08:39 | PCM.PROG ---
Attending Provider: ATTENDING PROVIDER: Dr. BOZENA AZEVEDO DATE OF SERVICE: 07/25/17 SUBJECTIVE: This 87 year old WHITE/ M was hospitalized 07/20/17. The patient is hospitalized with Influenza. The patient's condition is slowly improving. He is alert, today present in room condition sems to have clinically improved from yesterday oriented to person and place. REVIEW OF SYSTEMS: CONSTITUTIONAL: No night sweats. No fatigue, malaise, lethargy. No fever or chills. HEENT: Eyes: No visual changes. No eye pain. No eye discharge. ENT: No runny nose. No epistaxis. No sinus pain. No odynophagia. No congestion. RESPIRATORY: No cough, no congestion. No hemoptysis. No shortness of breath. CARDIOVASCULAR: No angina symptoms. No CHF symptoms. No atypical chest pain for CAD. No palpitations. No orthopnea.. GASTROINTESTINAL: No abdominal pain. No nausea or vomiting. No diarrhea or constipation. No hematemesis. No hematochezia. GENITOURINARY: No urgency. No frequency. No dysuria. No hematuria. No obstructive symptoms. No discharge. No pain. No significant abnormal bleeding. MUSCULOSKELETAL: No musculoskeletal pain; no joint swelling. NEUROLOGICAL: Awake, alert. No headache. No neck pain. No syncope. No seizures. No dizziness. PSYCHIATRIC: Not anxious. No depression. No suicidal thoughts. No homicidal thoughts. SKIN: No rash. No lesions. No wounds. ENDOCRINE: No unexplained weight loss. No weight gain. HEMATOLOGIC/LYMPHATIC: No anemia. No purpura. No petechiae. No prolonged or excessive bleeding. No palpable lymph nodes. PHYSICAL EXAMINATION: GENERAL: The patient is awake, alert lying in bed in no distress. VITAL SIGNS: Temperature 98.0 F, Pulse 86, Respiratory Rate 16, BP 101/60, Pulse Ox 94% HEENT: Head normocephalic, atraumatic. Eyes: Extraocular muscles are intact. Pupils are equal, round and reactive to light and accommodation. Ears: No lesions. Nose appeared normal. Throat: No exudate or erythema. NECK: Supple. No JVD, no carotid bruit. No lymphadenopathy or thyromegaly. LUNGS: Clear to auscultation. Percussion note normal. Chest symmetrical. HEART: S1, S2, no S3. No murmurs. No cyanosis or clubbing. No ascites. Pulses: Dorsalis pedis and posterior tibial pulses +1 to +2 both sides. ABDOMEN: Soft. Non-tender. Bowel sounds active. No CVA tenderness. No mass felt. EXTREMITIES: No edema. Full range of motion of all extremities, equal. NEUROLOGIC: No focal deficit. Cranial nerves II through XII are grossly intact. No headache, no double vision or headache. SKIN: Not dry. Intact. Turgor-normal. LYMPHATIC: No palpable lymph nodes/no lymphedema. MUSCULOSKELETAL: Normal joints with no swelling. Muscle tone is normal. LAB REVIEW: 07/25/17 04:30 07/25/17 04:30 07/25/17 04:30: Sodium 138, Potassium 5.3 H, Chloride 107, Carbon Dioxide 24, Anion Gap 12.3, BUN 30 H, Creatinine 1.36 H, Estimated GFR (MDRD) 49.00, BUN/ Creatinine Ratio 22.05, Glucose 137 H, Calcium 8.8, Total Bilirubin 0.3, AST 14 L, ALT 17, Alkaline Phosphatase 49 L, Total Protein 5.7 L, Albumin 2.1 L, Globulin 3.6, Albumin/Globulin Ratio 0.58 07/25/17 04:30: WBC 10.60 H, RBC 3.52 L, Hgb 11.8 L, Hct 34.8 L, MCV 98.9 H, MCH 33.5 H, MCHC 33.9, RDW Coeff of Lauri 13.0, Plt Count 205, Immature Gran % ( Auto) 2.2, Neut % (Auto) 88.6, Lymph % (Auto) 4.8 L, [place] % (Auto) 4.1, Eos % ( Auto) 0.0, Baso % (Auto) 0.3, Immature Gran # (Auto) 0.2, Neut # 9.4 H, Lymph # 0.5 L, [place] # 0.4, Eos # 0.0, Baso # 0.0 ASSESSMENT: 1. INFLUENZA WITH BRONCHITIS 2. DEHYDRATION 3. HYPOTENSION PLAN: 1. Continue IV fluids 2. Encourage the patient to eat Condition seems to be improving slowly. The patient is still not able to walk on his own. Plan and coordination of the patient's care discussed in the presence of Automatic Typewriter Inspector and nurse. CONDITION: Improving SCRIBED BY: MARY ANNE LUCERO, Library Sales Consultant scribed while in presence of service performed by Dr. BOZENA AZEVEDO on 07/25/17 ([id number])
[2017-07-25] MEDS: FLONASE NAS SCH ×2 (09:54→22:35)
[2017-07-25] MEDS: ROCEPHIN 1 GM in SODIUM CHLORIDE 50 ML IV SCH (09:55)
[2017-07-25] MEDS: OMEGA-3 FISH OIL PO SCH ×2 (09:57→22:34)
[2017-07-25] MEDS: NORCO 7.5-325 PO SCH ×2 (09:59→22:36)
[2017-07-25] MEDS: LOVENOX SUBCUT SCH (10:00)
[2017-07-25] MEDS: TAMIFLU PO SCH (10:04)
[2017-07-25] MEDS: LANOXIN PO SCH (10:07)
[2017-07-25] MEDS: ARICEPT PO SCH (10:09)
[2017-07-25] MEDS: ASPIRIN EC PO SCH (10:09)
[2017-07-25] MEDS: FERROUS SULFATE PO SCH (10:14)
[2017-07-25] MEDS: TORADOL IVP PRN (22:35)
[2017-07-26] MEDS: XOPENEX 1.25 MG NEB SCH ×4 (00:07→17:09)
[2017-07-26] MEDS: DEXTROSE 5%-1/2NS IV SOLUTION 1,000 ML IV SCH (04:07)
[2017-07-26] MEDS: SOLU-MEDROL 40 MG IVP SCH ×3 (04:08→21:07)
[2017-07-26] MEDS: PROTONIX PO SCH (05:37)
--- NOTE | 2017-07-26 10:02 | PN ---
DATE OF SERVICE: 07/24/17 SUBJECTIVE: 87 year old white male hospitalized with dehydration and influenza A positive. The patient's condition has improved initially but now she has been feeling weak , tired and fatigued. I talked to the and the daughter. He says that "I just feeling like dying and I have no desire to eat. I have been depressed." REVIEW OF SYSTEMS: CONSTITUTIONAL: No night sweats. No fatigue, malaise, lethargy. No fever or chills. HEENT: Eyes: No visual changes. No eye pain. No eye discharge. ENT: No runny nose. No epistaxis. No sinus pain. No sore throat. No odynophagia. No congestion. RESPIRATORY: No cough, no congestion. No hemoptysis. No shortness of breath. CARDIOVASCULAR: No angina symptoms. No CHF symptoms. No atypical chest pain for CAD. No palpitations. No orthopnea. GASTROINTESTINAL: No abdominal pain. No nausea or vomiting. No diarrhea or constipation. No hematemesis. No hematochezia. GENITOURINARY: No urgency. No frequency. No dysuria. No hematuria. No obstructive symptoms. No discharge. No pain. No significant abnormal bleeding. MUSCULOSKELETAL: No musculoskeletal pain; no joint swelling. NEUROLOGICAL: No headache. No neck pain. No syncope. No seizures. No dizziness. PSYCHIATRIC: Not anxious. No depression. No suicidal thoughts. No homicidal thoughts. SKIN: No rash. No lesions. No wounds. ENDOCRINE: No unexplained weight loss. No weight gain. HEMATOLOGIC/LYMPHATIC: No anemia. No purpura. No petechiae. No prolonged or excessive bleeding. No palpable lymph nodes. PHYSICAL EXAMINATION: HEENT: Head normocephalic, atraumatic. Eyes: Extraocular muscles are intact. Pupils are equal, round and reactive to light and accommodation. Ears: No lesions. Nose appeared normal. Throat: No exudate or erythema. NECK: Supple. No JVD, no carotid bruit. No lymphadenopathy or thyromegaly. LUNGS: Decreased breath sounds. Clear to auscultation. Percussion note normal. Chest symmetrical. HEART: S1, S2, no S3. No murmurs. No cyanosis or clubbing. No ascites. Pulses: Dorsalis pedis and posterior tibial pulses +1 to +2 both sides. ABDOMEN: Soft. Nontender. Bowel sounds active. No CVA tenderness. No mass felt. His four views of abdomen was negative. EXTREMITIES: No edema. Full range of motion of all extremities, equal. NEUROLOGIC: No focal deficit. Cranial nerves II through XII are grossly intact. No headache, no double vision or headache. SKIN: Not dry. Intact. Turgor - normal. LYMPHATIC: No palpable lymph nodes/no lymphedema. MUSCULOSKELETAL: Normal joints with no swelling. Muscle tone is normal. ASSESSMENT: 1. Flu syndrome with influenza 2. Dehydration 3. Extreme fatigue and weakness PLAN: 1. Continue Rocephin 2. Will give supportive measures with IV fluids 3. Encourage the patient to eat. CONDITION: Critical PROGNOSIS: Guarded The patient's family does not want him to be resuscitated. TIME SPENT: More than 30 minutes. Plan and coordination of the patient's care discussed in the presence of nurse. NINO
--- NOTE | 2017-07-26 10:15 | PN ---
DATE OF SERVICE: 07/23/17 SUBJECTIVE: The patient was seen with Nurse Practitioner. The patient was hospitalized with dehydration and influenza, recovering well. The abdominal pain the patient had had subsided. The patient's influenza is improving. The patient's appetite has improved along with hydration status. Kidney functions are better. PHYSICAL EXAMINATION: HEENT: Head normocephalic, atraumatic. Eyes: Extraocular muscles are intact. Pupils are equal, round and reactive to light and accommodation. Ears: No lesions. Nose appeared normal. Throat: No exudate or erythema. NECK: Supple. No JVD, no carotid bruit. No lymphadenopathy or thyromegaly. LUNGS: Decreased breath sounds. Clear to auscultation. Percussion note normal. Chest symmetrical. HEART: S1, S2, no S3. No murmurs. No cyanosis or clubbing. No ascites. Pulses: Dorsalis pedis and posterior tibial pulses +1 to +2 both sides. ABDOMEN: Soft. Nontender. Bowel sounds active. No CVA tenderness. No mass felt. EXTREMITIES: No edema. Full range of motion of all extremities, equal. NEUROLOGIC: No focal deficit. Cranial nerves II through XII are grossly intact. No headache, no double vision or headache. SKIN: Not dry. Intact. Turgor - normal. LYMPHATIC: No palpable lymph nodes/no lymphedema. MUSCULOSKELETAL: Normal joints with no swelling. Muscle tone is normal. TIME SPENT: More than 30 minutes. Plan and coordination of the patient's care discussed in the presence of nurse. NINO
[2017-07-26] MEDS ORDERED: SODIUM BICARBONATE 7.5% IVP STA (11:09)
[2017-07-26] MEDS ORDERED: DEXTROSE 50%-WATER ABBOJECT IVP STA (11:11)
[2017-07-26] MEDS ORDERED: HUMULIN R IVP STA (11:12)
[2017-07-26] MEDS: LOVENOX SUBCUT SCH (11:34)
[2017-07-26] MEDS: ARICEPT PO SCH (11:34)
[2017-07-26] MEDS: FLONASE NAS SCH ×2 (11:34→21:07)
[2017-07-26] MEDS: ASPIRIN EC PO SCH (11:35)
[2017-07-26] MEDS: LANOXIN PO SCH (11:36)
[2017-07-26] MEDS: FERROUS SULFATE PO SCH (11:36)
[2017-07-26] MEDS: NORCO 7.5-325 PO SCH ×2 (11:38→21:07)
[2017-07-26] MEDS: ROCEPHIN 1 GM in SODIUM CHLORIDE 50 ML IV SCH (11:38)
[2017-07-26] MEDS: OMEGA-3 FISH OIL PO SCH (11:42)
--- NOTE | 2017-07-26 11:53 | PN ---
DATE OF SERVICE: 07/20/17 SUBJECTIVE: 87-year-old white male was brought to the emergency room by family with cough, congestion, weakness, shortness of breath. The patient had these symptoms for three days, Influenza A positive. The patient's chest x-ray was clear. He was somewhat dehdyrated on physical exam with mild wheeze. No symptoms of CHF or evidence of CHF. WBC count is normal. ASSESSMENT: 1. INFLUENZA A 2. ACUTE BRONCHITIS 3. DEHYDRATION 4. WEAKNESS PLAN: 1. Give IV fluids 2. Steroids 3. IV antibiotics, Rocephin, p.o. Zithromax 4. Nebs treatment with Xopenex CONDITION: Stable TIME SPENT: More than 30 minutes. Plan and coordination of the patient's care discussed in the presence of nurse. NINO
[2017-07-27] MEDS: DEXTROSE 5%-1/2NS IV SOLUTION 1,000 ML IV SCH (00:27)
[2017-07-27] MEDS: XOPENEX 1.25 MG NEB SCH ×3 (05:22→11:46)
[2017-07-27 05:23] VITALS: BP 146/82; TEMP 97.8
[2017-07-27] MEDS: PROTONIX PO SCH (05:49)
[2017-07-27] MEDS: SOLU-MEDROL 40 MG IVP SCH ×2 (05:50→13:57)
[2017-07-27] MEDS: ASPIRIN EC PO SCH (08:21)
[2017-07-27] MEDS: FERROUS SULFATE PO SCH (09:50)
[2017-07-27] MEDS: ROCEPHIN 1 GM in SODIUM CHLORIDE 50 ML IV SCH (09:51)
[2017-07-27] MEDS: LOVENOX SUBCUT SCH (09:53)
[2017-07-27] MEDS: ARICEPT PO SCH (09:55)
[2017-07-27] MEDS: FLONASE NAS SCH (09:55)
--- NOTE | 2017-07-27 09:55 | PCM.PROG ---
Attending Provider: ATTENDING PROVIDER: Dr. BOZENA AZEVEDO This patient is seen with Tatiana Bowman, Nurse Practitioner. DATE OF SERVICE: 07/27/17 SUBJECTIVE: This 87 year old WHITE/ M was hospitalized 07/20/17. The patient is lying in bed resting comfortably. He is not alert, still not eating or drinking. Hospice care has been discussed in detail with the . She feels he would be more comfortable at home. He has been steadily declining due to poor intake, dementia and the aging process. REVIEW OF SYSTEMS: CONSTITUTIONAL: Weakness, fatigue, confusion. No night sweats. No fever or chills. HEENT: Eyes: No visual changes. No eye pain. No eye discharge. ENT: No runny nose. No epistaxis. No sinus pain. No odynophagia. No congestion. RESPIRATORY: No cough, no congestion. No hemoptysis. No shortness of breath. CARDIOVASCULAR: No angina symptoms. No CHF symptoms. No atypical chest pain for CAD. No palpitations. No orthopnea.. GASTROINTESTINAL: No abdominal pain. No nausea or vomiting. No diarrhea or constipation. No hematemesis. No hematochezia. GENITOURINARY: No urgency. No frequency. No dysuria. No hematuria. No obstructive symptoms. No discharge. No pain. No significant abnormal bleeding. MUSCULOSKELETAL: No musculoskeletal pain; no joint swelling. NEUROLOGICAL: Awake, alert, oriented to person only. No headache. No neck pain. No syncope. No seizures. No dizziness. PSYCHIATRIC: Not anxious. No depression. No suicidal thoughts. No homicidal thoughts. SKIN: No rash. No lesions. No wounds. ENDOCRINE: No unexplained weight loss. No weight gain. HEMATOLOGIC/LYMPHATIC: No anemia. No purpura. No petechiae. No prolonged or excessive bleeding. No palpable lymph nodes. PHYSICAL EXAMINATION: GENERAL: The patient is resting comfortably lying in bed in no distress. VITAL SIGNS: Temperature 97.8 F, Pulse 79, Respiratory Rate 20, BP 146/82, Pulse Ox 91% HEENT: Head normocephalic, atraumatic. Eyes: Extraocular muscles are intact. Pupils are equal, round and reactive to light and accommodation. Ears: No lesions. Nose appeared normal. Throat: No exudate or erythema. NECK: Supple. No JVD, no carotid bruit. No lymphadenopathy or thyromegaly. LUNGS: Diminished breath sounds bilaterally. Clear to auscultation. Percussion note normal. Chest symmetrical. HEART: S1, S2, no S3. No murmurs. No cyanosis or clubbing. No ascites. Pulses: Dorsalis pedis and posterior tibial pulses +1 to +2 both sides. ABDOMEN: Soft. Non-tender. Bowel sounds active. No CVA tenderness. No mass felt. EXTREMITIES: No edema. Full range of motion of all extremities, equal. NEUROLOGIC: No focal deficit. Cranial nerves II through XII are grossly intact. No headache, no double vision or headache. SKIN: Warm and dry. Intact. Turgor-normal. LYMPHATIC: No palpable lymph nodes/no lymphedema. MUSCULOSKELETAL: Normal joints with no swelling. Muscle tone is normal. LAB REVIEW: 07/27/17 04:30 07/27/17 04:30 07/27/17 04:30: Sodium 138, Potassium 4.3, Chloride 110 H, Carbon Dioxide 21 L, Anion Gap 11.3, BUN 32 H, Creatinine 1.19 H, Estimated GFR (MDRD) 58.00, BUN/ Creatinine Ratio 26.89, Glucose 182 H, Calcium 8.3, Total Bilirubin 0.7, AST 35 , ALT 37, Alkaline Phosphatase 53 L, Total Protein 5.0 L, Albumin 2.0 L, Globulin 3.0, Albumin/Globulin Ratio 0.67 07/27/17 04:30: WBC 16.45 H D, RBC 3.56 L, Hgb 11.9 L, Hct 34.7 L, MCV 97.5 H, MCH 33.4 H, MCHC 34.3, RDW Coeff of Lauri 12.7, Plt Count 247, Immature Gran % ( Auto) 1.2, Neut % (Auto) 92.7, Lymph % (Auto) 1.2 L, Mcnairy % (Auto) 4.7, Eos % ( Auto) 0.0, Baso % (Auto) 0.2, Immature Gran # (Auto) 0.2, Neut # 15.2 H, Lymph # 0.2 L, Mcnairy # 0.8, Eos # 0.0, Baso # 0.0 07/26/17 11:44: Potassium 4.2 07/26/17 11:02: Puncture Site Rb, O2 Saturation 93.0 L, ABG pH 7.476 H, ABG pCO2 30.6 L, ABG pO2 63.0 L, ABG HCO3 22.6, ABG Total CO2 23, ABG Base Excess -1 , FiO2 % 21.0 07/26/17 05:30: Sodium 137, Potassium 5.7 H, Chloride 106, Carbon Dioxide 19 L, Anion Gap 17.7, BUN 32 H, Creatinine 1.40 H, Estimated GFR (MDRD) 48.00, BUN/ Creatinine Ratio 22.85, Glucose 156 H, Calcium 9.1, Total Bilirubin 0.5, AST 13 L, ALT 11 L, Alkaline Phosphatase 56, Total Protein 5.6 L, Albumin 2.9 L, Globulin 2.7, Albumin/Globulin Ratio 1.07 ASSESSMENT: 1. INFLUENZA WITH BRONCHITIS 2. DEHYDRATION 3. HYPOTENSION 4. FAILURE TO THRIVE, REFUSING TO EAT OR DRINK 5. DEMENTIA PLAN: Discussed with concerning hospice as patient has overall debilitation. She is agreeable to talking with them. feels he would be more comfortable at home and understands poor prognosis due to progressive dementia resulting in decline in function, decreased appetite, and will have hospice evaluation today and revisit possible discharge home. Plan and coordination of the patient's care discussed in the presence of Bioinformatics Research Technician and nurse. CONDITION: Stable. Prognosis is poor. SCRIBED BY: MARY ANNE LUCERO Diamond Expert scribed while in presence of service performed by Dr. Azevedo/Tatiana Bowman APRN on 07/27/17 (0803)
[2017-07-27] MEDS: LANOXIN PO SCH (09:58)
[2017-07-27] MEDS: NORCO 7.5-325 PO SCH (09:58)
--- NOTE | 2017-07-27 10:00 | PCM.PROG ---
Attending Provider: ATTENDING PROVIDER: Dr. BOZENA AZEVEDO This patient is seen with Tatiana Bowman, Nurse Practitioner. DATE OF SERVICE: 07/26/17 SUBJECTIVE: This 87 year old WHITE/ M was hospitalized 07/20/17. The patient is lying in bed resting comfortably. is in the room. The patient has not been eating or drinking. He is alert at times otherwise sleeping mostly REVIEW OF SYSTEMS: CONSTITUTIONAL: Positive for malaise, weakness. No night sweats. No fever or chills. HEENT: Eyes: No visual changes. No eye pain. No eye discharge. ENT: No runny nose. No epistaxis. No sinus pain. No odynophagia. No congestion. RESPIRATORY: No cough, no congestion. No hemoptysis. No shortness of breath. CARDIOVASCULAR: No angina symptoms. No CHF symptoms. No atypical chest pain for CAD. No palpitations. No orthopnea.. GASTROINTESTINAL: No abdominal pain. No nausea or vomiting. No diarrhea or constipation. No hematemesis. No hematochezia. GENITOURINARY: No urgency. No frequency. No dysuria. No hematuria. No obstructive symptoms. No discharge. No pain. No significant abnormal bleeding. MUSCULOSKELETAL: No musculoskeletal pain; no joint swelling. NEUROLOGICAL: Positive for confusion. No headache. No neck pain. No syncope. No seizures. No dizziness. PSYCHIATRIC: Not anxious. No depression. No suicidal thoughts. No homicidal thoughts. SKIN: No rash. No lesions. No wounds. ENDOCRINE: No unexplained weight loss. No weight gain. HEMATOLOGIC/LYMPHATIC: No anemia. No purpura. No petechiae. No prolonged or excessive bleeding. No palpable lymph nodes. PHYSICAL EXAMINATION: GENERAL: The patient is resting comfortably in bed in no distress. VITAL SIGNS: Temperature 97.1 F, Pulse 50, Respiratory Rate 16, BP 158/72, Pulse Ox 92% HEENT: Head normocephalic, atraumatic. Eyes: Extraocular muscles are intact. Pupils are equal, round and reactive to light and accommodation. Ears: No lesions. Nose appeared normal. Throat: No exudate or erythema. NECK: Supple. No JVD, no carotid bruit. No lymphadenopathy or thyromegaly. LUNGS: Diminished breath sounds bilaterally. Clear to auscultation. Percussion note normal. Chest symmetrical. HEART: S1, S2, no S3. No murmurs. No cyanosis or clubbing. No ascites. Pulses: Dorsalis pedis and posterior tibial pulses +1 to +2 both sides. ABDOMEN: Soft. Non-tender. Bowel sounds active. No CVA tenderness. No mass felt. EXTREMITIES: No edema. Full range of motion of all extremities, equal. NEUROLOGIC: No focal deficit. Cranial nerves II through XII are grossly intact. No headache, no double vision or headache. SKIN: Not dry. Intact. Turgor-normal. LYMPHATIC: No palpable lymph nodes/no lymphedema. MUSCULOSKELETAL: Normal joints with no swelling. Muscle tone is normal. LAB REVIEW: 07/26/17 05:30 07/25/17 04:30 07/26/17 05:30: WBC 10.61 H, RBC 3.46 L, Hgb 11.5 L, Hct 33.9 L, MCV 98.0 H, MCH 33.2 H, MCHC 33.9, RDW Coeff of Lauri 13.0, Plt Count 238, Immature Gran % ( Auto) 4.3, Neut % (Auto) 86.0, Lymph % (Auto) 3.8 L, Hand % (Auto) 5.5, Eos % ( Auto) 0.0, Baso % (Auto) 0.4, Immature Gran # (Auto) 0.5, Neut # 9.1 H, Lymph # 0.4 L, Hand # 0.6, Eos # 0.0, Baso # 0.0 ASSESSMENT: 1. INFLUENZA WITH BRONCHITIS 2. DEHYDRATION 3. HYPOTENSION 4. FAILURE TO THRIVE, REFUSING TO EAT OR DRINK PLAN: 1. Continue IV medications 2. Discontinue fish oil 3. Palliative care and hospice discussed with in detail. Hope is poor due to underlying medical conditions. The demonstrates understanding. She expresses the desire to take the patient home at some point. Plan and coordination of the patient's care discussed in the presence of Double End Tenoner Setter and nurse. CONDITION: Stable but poor prognosis SCRIBED BY: MARY ANNE LUCERO, Pattern Attendant scribed while in presence of service performed by Dr. Azevedo/Tatiana Bowman APRN on 07/26/17 (0800)
--- NOTE | 2017-07-27 12:22 | CM.DICTOOL ---
ADMISSION: 07/20/17 16:47 DISCHARGE: 07/27/17 FINAL DIAGNOSIS INFLUENZA A POSITIVE DEHYDRATION HYPOKALEMIA COPD HYPOTENSION ESOPHAGELA STRICTURE S/P PROCEDURES, DR. MAJOR, 2013 H-PYLORI POSITIVE VITAMIN B DEFICIENCY CAD S/P CABG HYPERTENSION DYSLIPIDEMIA BPH TOBACCO USE (1&1/2 PPD X 30 YEARS) BASAL CELL CARCINOMA, LEFT PERIORBITAL AREA AND RIGHT FOREARM PANIC ATTACKS PACEMAKER PLACEMENT, 1984 ALZHEIMERS DEMENTIA LAST VITALS Temp Pulse Resp BP Pulse Ox 97.8 F 74 20 146/82 H 91 L 07/27/17 05:22 07/27/17 09:58 07/27/17 05:22 07/27/17 05:22 07/27/17 10:00 ACTIVE MEDICATIONS Acetaminophen/Hydrocodone Bitart ([place] 7.5-325) 1 tab PO BID PRN Last Admin: 07/27/17 09:58 Dose: 1 tab Alprazolam (Xanax) 0.25 mg PO BID PRN PRN Reason: Anxiety Last Admin: 07/24/17 20:37 Dose: 0.25 mg Aspirin (A[facility]in Ec) [facility] [place] Last Admin: 07/27/17 08:21 Dose: Digoxin (Lanoxin) 125 mcg PO DAILY [facility] Last Admin: 07/27/17 09:58 Dose: 125 mcg Donepezil HCl (Aricept) 5 mg PO DAILY [facility] Last Admin: 07/27/17 09:55 Dose: Ferrous Sulfate (Ferrous Sulfate) 324 mg PO DAILY [facility] Last Admin: 07/27/17 09:50 Dose: FISH OIL 1 CAPSULE BID NASACORT 1-2 TIMES DAILY ALLERGIES No Known Allergies Allergy (Verified 07/20/17 13:30) NEW PRESCRIPTIONS: NEW MEDICATIONS 1. KEFLEX 500MG TAKE 1 CAPSULE 2 TIMES A DAY FOR 5 DAYS. TAKE UNTIL ALL GONE. 2. PREDNISONE 10MG TAKE 1 TABLET 2 TIMES A DAY FOR 5 DAYS. TAKE WITH FOOD. SMOKING: N/A DISEASE SPECIFIC EDUCATION: EDUCATION GIVEN TO SPOUSE MEDICATION HOSPICE CARE LAB REVIEW: 07/27/17 04:30 07/27/17 04:30 07/27/17 04:30: Sodium 138, Potassium 4.3, Chloride 110 H, Carbon Dioxide 21 L, Anion Gap 11.3, BUN 32 H, Creatinine 1.19 H, Estimated GFR (MDRD) 58.00, BUN/ Creatinine Ratio 26.89, Glucose 182 H, Calcium 8.3, Total Bilirubin 0.7, AST 35 , ALT 37, Alkaline Phosphatase 53 L, Total Protein 5.0 L, Albumin 2.0 L, Globulin 3.0, Albumin/Globulin Ratio 0.67 07/27/17 04:30: WBC 16.45 H D, RBC 3.56 L, Hgb 11.9 L, Hct 34.7 L, MCV 97.5 H, MCH 33.4 H, MCHC 34.3, RDW Coeff of Lauri 12.7, Plt Count 247, Immature Gran % ( Auto) 1.2, Neut % (Auto) 92.7, Lymph % (Auto) 1.2 L, Haines % (Auto) 4.7, Eos % ( Auto) 0.0, Baso % (Auto) 0.2, Immature Gran # (Auto) 0.2, Neut # 15.2 H, Lymph # 0.2 L, Haines # 0.8, Eos # 0.0, Baso # 0.0 07/26/17 11:44: Potassium 4.2 07/26/17 11:02: Puncture Site Rb, O2 Saturation 93.0 L, ABG pH 7.476 H, ABG pCO2 30.6 L, ABG pO2 63.0 L, ABG HCO3 22.6, ABG Total CO2 23, ABG Base Excess -1 , FiO2 % 21.0 PLAN: DISCHARGE TO HOME CONTINUE HOME MEDICATIONS PER NURSING SHEETS NEW MEDICATIONS: 1. KEFLEX 500MG TAKE 1 CAPSULE 2 TIMES A DAY FOR 5 DAYS. TAKE UNTIL ALL GONE. 2. PREDNISONE 10MG TAKE 1 TABLET 2 TIMES A DAY FOR 5 DAYS. TAKE WITH FOOD. DIET TOLERATED. ENCOURAGE FLUIDS. ACTIVITY TOLERATED. REPOSITION IN BED EVERY 2 HOURS. [facility] TO CALL WITH APPOINTMENT DATE AND TIME. LAYING IN BED WITH EYES CLOSED. DID NOT EVEN OPEN EYES WHEN WE WALKED IN ROOM OR WHEN Nereida MURPHY DID ASSESSMENT. SPOUSE AT BED SIDE. PATIENT IS ORIENTED X 4 WHEN AWAKE. SPEECH IS GETTING LESS OFTEN AND FEWER WORDS. IS REFUSING TO EAT. Nereida MURPHY SPOKE WITH PATIENT'S SPOUSE ABOUT DISCHARGE AND HOSPICE CARE. PATIENT' S SPOUSE STATES SHE BELIEVES PATIENT WOULD BE MORE COMFORTABLE AT HOME AND SHE IS RECEPTIVE TO HOSPICE CARE. HAS NOT ATE FOR PAST 3 DAYS. VITAL SIGNS ARE STABLE. HAS BEEN AFEBRILE. POX 91% ON ROOM AIR. HEART TONES ARE REGULAR. LUNGS ARE CLEAR WITH COARSE. HAS NON-PRODUCTIVE COUGH. IS DYSPNEIC WITH ACTIVITY. ABDOMEN IS SOFT, NON-TENDER WITH BOWEL SOUNDS POSITIVE IN ALL 4 QUADS. INCONTINENT OF BOWEL AND BLADDER. LAST BM ON 07/25/17. PEDAL PULSES POSITIVE WITHOUT EDEMA. COLOR IS PALE. HAS IV OF D51/2 NORMAL SALINE IN LEFT FOREARM SITE IS CLEAR. IS FALL RISK WITH FALL PRECAUTIONS IN USE. IS NOT GETTING OUT OF BED. DR. BOZENA AZEVEDO MD Nereida MURPHY APRN
--- NOTE | 2017-07-30 14:37 | PN ---
DATE OF SERVICE: 07/26/17 SUBJECTIVE: Today he had hyperkalemia which was treated with IV Sodium bicarb along with 5 units of regular insulin and 50cc glucose. As potassium now from 6.3 is down to 4.7. The patient's condition is improving slowly but prognosis is poor. The patient was seen and examined with Nurse Practitioner. TIME SPENT: More than 30 minutes. Plan and coordination of the patient's care discussed in the presence of nurse. NINO
--- NOTE | 2017-08-02 11:25 | PN ---
DATE OF SERVICE: 07/27/17 SUBJECTIVE: 87 year old white male hospitalized with influenza. The patient's condition improved to some extent but he is more demented and weak. His appetite has been slowly improving but he is unable to get up on his own. The patient's overall nutritional status has deteriorated. He has been unable to get up on his own. Cardiovascular status is stable. The patient has no pneumonia. The patient's family has agreed to take patient home. The has agreed to have Hospice consult and Hospice accepted the patient under Alzheimer's Dementia. The patient was discharged with Hospice. Diagnosis for Hospice would be Alzheimer's Dementia. LABS: The patient's ABG on room air on the day of discharge pO2 63, pCO2 30, pH 7.47 with 93% saturation. Potassium 4.2. CONDITION: Stable PROGNOSIS: Poor TIME SPENT: More than 30 minutes. Plan and coordination of the patient's care discussed in the presence of nurse. NINO
--- NOTE | 2017-08-02 11:27 | PN ---
07/20/17: Level 5 07/21/17: Intermediate 07/22/17: Intermediate 07/23/17: Intermediate 07/24/17: Intermediate 07/25/17: Intermediate 07/26/18: Intermediate 07/27/17: D as in discharge MTDD
--- NOTE | 2017-08-28 14:40 | DS ---
DATE OF SERVICE: 07/27/17 FINAL DIAGNOSIS: 1. INFLUENZA A POSITIVE 2. DEHYDRATION 3. HYPOKALEMIA 4. COPD 5. HYPOTENSION 6. ESOPHAGEAL STRICTURE S/P PROCEDURES, DR. MAJOR, 2013 7. H. PYLORI POSITIVE 8. VITAMIN B DEFICIENCY 9. CAD STATUS POST CABG 10. HYPERTENSION 11. DYSLIPIDEMIA 12. BPH 13. TOBACCO USE (1 & 1/2 PACKS PER DAY TIMES 30 YEARS) 14. BASAL CELL CARCINOMA, LEFT PERIORBITAL AREA AND RIGHT FOREARM 15. PANIC ATTACKS 16. PACEMAKER PLACEMENT, 1984 17. ALZHEIMER'S DEMENTIA DISCHARGE INSTRUCTIONS: [facility] to call with appointment date and time. We will visit the patient in the office as needed. MEDICATIONS AT DISCHARGE: Acetaminophen/Hydrocodone one tab p.o. b.i.d. p.r.n. Xanax 0.25 mg p.o. b.i.d. p.r.n. Aspirin EC 81 mg p.o. daily with meal VERONICA Lanoxin 125 mcg p.o. daily VERONICA Aricept 5 mg p.o. daily VERONICA Ferrous Sulfate 324 mg p.o. daily VERONICA Fish Oil one capsule b.i.d. Nasacort 1 to 2 times daily NEW PRESCRIPTIONS: Keflex 500 mg take one capsule two times a day for 5 days. Take until all gone Prednisone 10 mg take one tablet two times a day for 5 days. Take with food. DIET INSTRUCTIONS: As tolerated. Encourage fluids. ACTIVITY: As tolerated. Reposition in bed every 2 hours. SMOKING: N/A DISEASE SPECIFIC EDUCATION: Education given to spouse Medication Hospice care HOSPITAL COURSE: This is an 87-year-old white male who is brought to the emergency room with fever, altered mental status, cough, generalized weakness. He was found to be positive for Influenza A in the emergency room. His kidney function was elevated showing acute dehydration. He was unable to hold his head up and confused. He does have a history of dementia. Over the course of several days, he has not responded very well. He does have a history of COPD and is a heavy smoker and has been up until his hospital stay. His fever resolved within 48 hours however he has been refusing to eat or drink. His weakness has worsened. He has become more confused, more drowsy, less alert. His dementia has been gradually worsening over the past several months. He has expressed his wish to go home. Chest x-ray revealed no pneumonia. He does have chronic kidney disease. He has remained on IV fluids due to his refusal to eat and drink. The wishes to take him home. He finished his course of Tamiflu. She states she feels he would be happier at home and demonstrates total understanding of his poor prognosis and outlook just due to the aging process, debilitating dementia , refusal to eat, failure to thrive. We have consulted with Hospice today. They have agreed to accept him. The wishes to take him home and Hospice will meet her at home for a consult today. We will visit him in the office as needed. Will send him home on Keflex 500 mg b.i.d. for the next 5 days along with Prednisone 10 mg b.i.d. for the next 5 days. The has been instructed to encourage fluids, activity as tolerated, reposition. Again, Hospice is to followup with him as soon as they get home. The is in agreement with this plan of care as she states that this would be the patient's wishes. The patient has expressed his desire to return home as well. The patient is discharged in no distress. Temperature 97.8, heart rate 74, respirations 20, BP 146/82, pulse ox 92% on room air. His labs have remained stable. Hemoglobin 11.9, white count 16,000, hematocrit 34.7, platelets 247. BUN 32, creatinine 1.19, sodium 138, potassium 4.3. TIME SPENT: More than 60 minutes. [facility]
== END 2017-07-27 14:30 | disposition hospice, home (50) | DRG 194 ==
LOC: ED 13:16 → MEDSURG B 16:47
PROVIDERS: ADMIT Internal Medicine; ATTEND Internal Medicine
DX: J10.1 Influenza due to other identified influenza virus with other respiratory manifestations (principal); I25.810 Atherosclerosis of coronary artery bypass graft(s) without angina pectoris; E86.0 Dehydration; E87.6 Hypokalemia; J44.9 Chronic obstructive pulmonary disease, unspecified; I95.9 Hypotension, unspecified; K22.2 Esophageal obstruction; B96.81 Helicobacter pylori [H. pylori] as the cause of diseases classified elsewhere; E53.9 Vitamin B deficiency, unspecified; I10 Essential (primary) hypertension; E78.5 Hyperlipidemia, unspecified; N40.0 Benign prostatic hyperplasia without lower urinary tract symptoms; Z72.0 Tobacco use; C44.612 Basal cell carcinoma of skin of right upper limb, including shoulder; C44.319 Basal cell carcinoma of skin of other parts of face; F41.0 Panic disorder [episodic paroxysmal anxiety]; Z95.0 Presence of cardiac pacemaker; G30.9 Alzheimer's disease, unspecified; F02.80 Dementia in other diseases classified elsewhere, unspecified severity, without behavioral disturbance, psychotic disturbance, mood disturbance, and anxiety
CPT/HCPCS: 36415; 80053; 80162; 81001; 82803; 84132; 84484; 85025; 87502; 87651; 93005; 93010; 94640; 94644; 96374; 97802; 99223; 99232; 99239; 99284